=== PATIENT | female | born 1955 | race Caucasian/White ===

== ENCOUNTER → 2017-06-24 | Outpatient (CLI) | payer BC ==
--- NOTE | 2017-06-24 16:54 | PCVCIMAG ---
APPROVED REPORT Exam: Stress Echocardiogram Indication: chest pain Patient Location: Echo lab Stress Nurse: Charissa Jefferson RN Status: routine Ht: 4 ft 5 in HR: 90 bpm BP: 122/80 mmHg Rhythm: NSR Procedure The patient underwent an Exercise Stress Test using the Sesar Protocol. Blood pressure, heart rate, and EKG were monitored. An Echocardiogram was performed by hydraulic technician in four stages in quad fashion. At peak stress, four selected images were obtained and placed side by side with resting images for comparison. Stress Test Details Stress Test: Exercise stress testing was performed using a Sesar protocol. HR Resting HR: 90 bpmMax Heart Rate (APMHR): 157 bpm Max HR Achieved: 155 bpmTarget HR (85% APMHR): 133 bpm % of APMHR: 98 HR response to stress: Normal HR response to stress BP Resting BP: 122/80 mmHg Max BP: 152/80 mmHg ECG Resting ECG: Sinus Rhythm Stress ECG: Sinus Rhythm ST Change: Normal Maximum ST Deviation: 0 mm Arrhythmia: None Recovery ECG: Sinus Rhythm Recovery ST Change: Normal Recovery ST Deviation: 0 mm Clinical Reason for Termination: Maximal effort Exercise duration: 12 min 36 sec Highest Stage Achieved: Stage 3: 3.4 mph at 14% grade. Exercise capacity: 15.60 METs Overall Exercise Capacity for Age: Good Angina Score: None Stress ECG Conclusion Clinical: Non-ischemic ECG: Non-ischemic Kidd Treadmill Score is 12.0 which is Low risk. Pre-Stress Echo The resting Echocardiogram showed normal left ventricular contractility with an estimated Ejection Fraction of about 55-60%. Normal wall motion in all segments on baseline images. Post-Stress Echo The stress Echocardiogram showed normal left ventricular contractility with an estimated Ejection Fraction of about 60-65%. Normal augmentation of wall motion in all segments on post stress images. Conclusion Clinical Response: Non-ischemic Exercise Capacity: Superior Stress ECG Response: Non-ischemic Stress Echo Images: Non-ischemic Normal stress echocardiogram with maximal exercise stress. Other Information Study Quality: Good <Conclusion> Normal stress echocardiogram with maximal exercise stress.
== END | disposition home or self-care (01) ==
LOC: PCVCIMAG 15:41
PROVIDERS: ATTEND Internal Medicine
DX: R07.9 Chest pain, unspecified (principal)
CPT/HCPCS: 93325; 93351